=== PATIENT | female | born 1950 ===

== ENCOUNTER 2017-12-12 08:37 | Outpatient (CLI) | payer MEDICARE ==
[~2017-12-12] VITALS: Ht 154.9 cm; Wt 50.3 kg
== END 2017-12-12 10:37 | disposition home or self-care (01) ==
LOC: ECT 08:37
DX: F32.3 Major depressive disorder, single episode, severe with psychotic features (principal)

== ENCOUNTER 2017-12-13 09:06 | Outpatient (RCR) | payer MEDICARE ==
[~2017-12-13] VITALS: Ht 154.9 cm; Wt 50.6 kg
[2017-12-13] MEDS ORDERED: Succinylcholine 20mg/ml 10ml vial ONE ×2 (09:07)
[2017-12-13] MEDS ORDERED: Excedrin Migraine tab ONE (09:07)
[2017-12-13] MEDS ORDERED: Ketorolac 30mg Inj ONE (09:07)
[2017-12-13] MEDS ORDERED: NS 500ML ONE ×2 (09:07)
[2017-12-13] MEDS ORDERED: Methohexital Sodium Syr 100mg/10ml IVP ONE ×2 (09:07)
[2017-12-13 10:57] VITALS: BP 139/77
[2017-12-13] MEDS ORDERED: Sodium Chloride 500ML 500 ML IV ONE (11:07)
[2017-12-13 11:10] VITALS: BP 146/61
[2017-12-13 11:15] VITALS: BP 137/60
[2017-12-13 11:20] VITALS: BP 138/65
[2017-12-13 11:25] VITALS: BP 146/65
[2017-12-13 13:50] VITALS: BP 139/77
[2017-12-15] MEDS ORDERED: NS 500ML ONE (07:00)
[2017-12-15] MEDS ORDERED: Ketorolac 30mg Inj ONE (07:00)
[2017-12-15] MEDS ORDERED: Succinylcholine 20mg/ml 10ml vial ONE (07:00)
[2017-12-15] MEDS ORDERED: Methohexital Sodium Syr 100mg/10ml IVP ONE (07:00)
[2017-12-15] MEDS ORDERED: Excedrin Migraine tab ONE (07:00)
[2017-12-15 09:14] VITALS: BP 138/84
[2017-12-15] MEDS ORDERED: Excedrin Migraine tab ORAL PRN (09:26)
[2017-12-15] MEDS ORDERED: Sodium Chloride 500ML 500 ML IV ONE (09:26)
[2017-12-15 09:30] VITALS: BP 174/74
[2017-12-15 09:35] VITALS: BP 157/72
[2017-12-15 09:40] VITALS: BP 151/91
[2017-12-15 09:45] VITALS: BP 158/82
[2017-12-18] MEDS ORDERED: Methohexital Sodium Syr 100mg/10ml IVP ONE (08:00)
[2017-12-18] MEDS ORDERED: NS 500ML ONE (08:00)
[2017-12-18] MEDS ORDERED: Succinylcholine 20mg/ml 10ml vial ONE (08:00)
[2017-12-18] MEDS ORDERED: Excedrin Migraine tab ONE (08:00)
[2017-12-18] MEDS ORDERED: Ketorolac 30mg Inj ONE (08:00)
[2017-12-18 08:50] VITALS: BP 135/73
[2017-12-18] MEDS ORDERED: Sodium Chloride 500ML 500 ML IV ONE (09:05)
[2017-12-18] MEDS ORDERED: Excedrin Migraine tab ORAL PRN (09:05)
[2017-12-18 09:10] VITALS: BP 142/63
[2017-12-18 09:15] VITALS: BP 134/66
[2017-12-18 09:20] VITALS: BP 138/63
[2017-12-18 09:25] VITALS: BP 149/58
[2017-12-20] MEDS ORDERED: Succinylcholine 20mg/ml 10ml vial ONE (08:00)
[2017-12-20] MEDS ORDERED: Ketorolac 30mg Inj ONE (08:00)
[2017-12-20] MEDS ORDERED: NS 500ML ONE (08:00)
[2017-12-20] MEDS ORDERED: Methohexital Sodium Syr 100mg/10ml IVP ONE (08:00)
[2017-12-20] MEDS ORDERED: Excedrin Migraine tab ONE (08:00)
[2017-12-20 09:26] VITALS: BP 151/79
[2017-12-20] MEDS ORDERED: Excedrin Migraine tab ORAL PRN (09:49)
[2017-12-20] MEDS ORDERED: Sodium Chloride 500ML 500 ML IV ONE (09:49)
[2017-12-20 09:50] VITALS: BP 168/93
[2017-12-20 09:55] VITALS: BP 158/70
[2017-12-20 10:00] VITALS: BP 159/73
[2017-12-20 10:05] VITALS: BP 159/64
[2017-12-22] MEDS ORDERED: Ketorolac 60mg Inj IM ONE (09:00)
[2017-12-22] MEDS ORDERED: NS 500ML ONE (09:00)
[2017-12-22] MEDS ORDERED: Excedrin Migraine tab ONE (09:00)
[2017-12-22] MEDS ORDERED: Methohexital Sodium Syr 100mg/10ml IVP ONE (09:00)
[2017-12-22] MEDS ORDERED: Succinylcholine 20mg/ml 10ml vial ONE ×2 (09:00)
[2017-12-22 09:07] VITALS: BP 144/80
[2017-12-22] MEDS ORDERED: Sodium Chloride 500ML 500 ML IV ONE (09:21)
[2017-12-22] MEDS ORDERED: Excedrin Migraine tab ORAL PRN (09:21)
[2017-12-22 09:25] VITALS: BP 153/68
[2017-12-22 09:30] VITALS: BP 155/73
[2017-12-22 09:35] VITALS: BP 157/72
[2017-12-22 09:40] VITALS: BP 156/66
[2017-12-25 09:04] VITALS: BP 129/67
[2017-12-25] MEDS ORDERED: Sodium Chloride 500ML 500 ML IV ONE (09:14)
[2017-12-25] MEDS ORDERED: Excedrin Migraine tab ORAL PRN (09:14)
[2017-12-25 09:15] VITALS: BP 149/69
[2017-12-25 09:20] VITALS: BP 146/61
[2017-12-25 09:25] VITALS: BP 152/69
[2017-12-25 09:30] VITALS: BP 153/74
[2017-12-27] MEDS ORDERED: Excedrin Migraine tab ONE (07:00)
[2017-12-27] MEDS ORDERED: NS 500ML ONE (07:00)
[2017-12-27] MEDS ORDERED: Succinylcholine 20mg/ml 10ml vial ONE (07:00)
[2017-12-27] MEDS ORDERED: Ketorolac 30mg Inj ONE (07:00)
[2017-12-27] MEDS ORDERED: Methohexital Sodium Syr 100mg/10ml IVP ONE (07:00)
[2017-12-27 08:58] VITALS: BP 142/83
[2017-12-27] MEDS ORDERED: Excedrin Migraine tab ORAL PRN (09:08)
[2017-12-27] MEDS ORDERED: Sodium Chloride 500ML 500 ML IV ONE (09:08)
[2017-12-27 09:10] VITALS: BP 156/74
[2017-12-27 09:15] VITALS: BP 152/72
[2017-12-27 09:20] VITALS: BP 148/71
[2017-12-27 09:25] VITALS: BP 145/67
[2017-12-29] MEDS ORDERED: Ketorolac 30mg Inj ONE (07:00)
[2017-12-29] MEDS ORDERED: Succinylcholine 20mg/ml 10ml vial ONE (07:00)
[2017-12-29] MEDS ORDERED: Excedrin Migraine tab ONE (07:00)
[2017-12-29] MEDS ORDERED: NS 500ML ONE (07:00)
[2017-12-29] MEDS ORDERED: Methohexital Sodium Syr 100mg/10ml IVP ONE (07:00)
[2017-12-29 08:45] VITALS: BP 143/83
[2017-12-29 09:00] VITALS: BP 161/85
[2017-12-29] MEDS ORDERED: Excedrin Migraine tab ORAL PRN (09:00)
[2017-12-29] MEDS ORDERED: Sodium Chloride 500ML 500 ML IV ONE (09:00)
[2017-12-29 09:05] VITALS: BP 147/78
[2017-12-29 09:10] VITALS: BP 142/78
[2017-12-29 09:15] VITALS: BP 148/75
[2018-01-05] MEDS ORDERED: NS 500ML ONE (06:00)
[2018-01-05] MEDS ORDERED: Ketorolac 60mg Inj IM ONE (06:00)
[2018-01-05] MEDS ORDERED: Succinylcholine 20mg/ml 10ml vial ONE (06:00)
[2018-01-05] MEDS ORDERED: Excedrin Migraine tab ONE (06:00)
[2018-01-05 08:13] VITALS: BP 140/78
[2018-01-05] MEDS ORDERED: Sodium Chloride 500ML 500 ML IV ONE (08:28)
[2018-01-05] MEDS ORDERED: Excedrin Migraine tab ORAL PRN (08:28)
[2018-01-05 08:30] VITALS: BP 161/84
[2018-01-05 08:35] VITALS: BP 152/86
[2018-01-05 08:40] VITALS: BP 154/78
[2018-01-05 08:45] VITALS: BP 159/82
== END 2018-01-07 | disposition home or self-care (01) ==
LOC: ECT 09:06
DX: F32.3 Major depressive disorder, single episode, severe with psychotic features (principal)
CPT/HCPCS: 90870; J0330; J1885; J7040

== ENCOUNTER 2018-01-17 06:07 | Outpatient (RCR) | payer MEDICARE ==
[~2018-01-17] VITALS: Ht 30.5 cm; Wt 0.5 kg
[2018-01-17] MEDS ORDERED: NS 500ML ONE (06:08)
[2018-01-17] MEDS ORDERED: Methohexital Sodium Syr 100mg/10ml IVP ONE (06:08)
[2018-01-17] MEDS ORDERED: Ketorolac 30mg Inj ONE (06:08)
[2018-01-17] MEDS ORDERED: Succinylcholine 20mg/ml 10ml vial ONE (06:08)
[2018-01-17] MEDS ORDERED: Excedrin Migraine tab ONE (06:08)
[2018-01-17 09:48] VITALS: BP 133/78
[2018-01-17] MEDS ORDERED: Sodium Chloride 500ML 500 ML IV ONE (10:02)
[2018-01-17] MEDS ORDERED: Excedrin Migraine tab ORAL PRN (10:02)
[2018-01-17 10:05] VITALS: BP 134/59
[2018-01-17 10:10] VITALS: BP 130/53
[2018-01-17 10:15] VITALS: BP 142/65
[2018-02-07 08:46] VITALS: BP 135/74
[2018-02-07] MEDS ORDERED: Atropine Sulfate 0.4mg/ml inj IVP PRN (08:58)
[2018-02-07] MEDS ORDERED: Sodium Chloride 500ML 500 ML IV ONE (08:58)
[2018-02-07] MEDS ORDERED: Excedrin Migraine tab ORAL PRN (08:58)
[2018-02-07 09:00] VITALS: BP 163/53
[2018-02-07 09:05] VITALS: BP 154/79
[2018-02-07 09:10] VITALS: BP 153/80
[2018-02-07 09:15] VITALS: BP 155/57
[2018-02-07] MEDS ORDERED: Methohexital Sodium Syr 100mg/10ml IVP ONE (13:06)
[2018-02-07] MEDS ORDERED: NS 500ML ONE (13:06)
[2018-02-07] MEDS ORDERED: Succinylcholine 20mg/ml 10ml vial ONE (13:06)
[2018-02-07] MEDS ORDERED: Excedrin Migraine tab ONE (13:06)
[2018-02-07] MEDS ORDERED: Ketorolac 30mg Inj ONE (13:06)
== END 2018-02-07 | disposition home or self-care (01) ==
LOC: ECT 06:07
DX: F32.3 Major depressive disorder, single episode, severe with psychotic features (principal)
CPT/HCPCS: 90870; J0330; J1885; J7040

== ENCOUNTER 2018-03-07 04:39 | Outpatient (RCR) | payer MEDICARE ==
[~2018-03-07] VITALS: Ht 154.9 cm; Wt 50.3 kg
[2018-03-07] MEDS ORDERED: Ketorolac 30mg Inj ONE (04:40)
[2018-03-07] MEDS ORDERED: Methohexital Sodium Syr 100mg/10ml IVP ONE (04:40)
[2018-03-07] MEDS ORDERED: Succinylcholine 20mg/ml 10ml vial ONE (04:40)
[2018-03-07] MEDS ORDERED: NS 500ML ONE (04:40)
[2018-03-07] MEDS ORDERED: Excedrin Migraine tab ONE (04:40)
[2018-03-07 08:42] VITALS: BP 112/70
[2018-03-07] MEDS ORDERED: Excedrin Migraine tab ORAL PRN (08:55)
[2018-03-07] MEDS ORDERED: Sodium Chloride 500ML 500 ML IV ONE (08:55)
[2018-03-07 09:00] VITALS: BP 150/70
[2018-03-07 09:05] VITALS: BP 138/62
[2018-03-07 09:10] VITALS: BP 139/68
[2018-03-07 09:15] VITALS: BP 136/48
== END 2018-03-09 | disposition home or self-care (01) ==
LOC: ECT 04:39
DX: F32.3 Major depressive disorder, single episode, severe with psychotic features (principal)
CPT/HCPCS: 90870; J0330; J1885; J7040

== ENCOUNTER 2018-04-04 05:51 | Outpatient (RCR) | payer MEDICARE ==
[~2018-04-04] VITALS: Ht 30.5 cm; Wt 0.5 kg
[2018-04-04 08:08] VITALS: BP 116/67
[2018-04-04] MEDS ORDERED: Excedrin Migraine tab ORAL PRN (08:23)
[2018-04-04] MEDS ORDERED: Sodium Chloride 500ML 500 ML IV ONE (08:23)
[2018-04-04 08:25] VITALS: BP 143/73
[2018-04-04 08:30] VITALS: BP 149/78
[2018-04-04 08:35] VITALS: BP 138/77
[2018-04-04 08:40] VITALS: BP 146/65
== END 2018-04-09 | disposition home or self-care (01) ==
LOC: ECT 05:51
DX: F32.3 Major depressive disorder, single episode, severe with psychotic features (principal); E78.5 Hyperlipidemia, unspecified; E03.9 Hypothyroidism, unspecified; E11.9 Type 2 diabetes mellitus without complications; F41.9 Anxiety disorder, unspecified; H40.9 Unspecified glaucoma
CPT/HCPCS: 90870

== ENCOUNTER 2018-05-02 07:37 | Outpatient (RCR) | payer MEDICARE ==
[~2018-05-02] VITALS: Ht 30.5 cm; Wt 0.5 kg
[2018-05-02] MEDS ORDERED: Ketorolac 30mg Inj ONE (07:38)
[2018-05-02] MEDS ORDERED: NS 500ML ONE (07:38)
[2018-05-02] MEDS ORDERED: Succinylcholine 20mg/ml 10ml vial ONE (07:38)
[2018-05-02] MEDS ORDERED: Methohexital Sodium Syr 100mg/10ml IVP ONE (07:38)
[2018-05-02] MEDS ORDERED: Excedrin Migraine tab ONE (07:38)
[2018-05-02] MEDS ORDERED: Excedrin Migraine tab ORAL PRN ×3 (08:31→08:51)
[2018-05-02 08:37] VITALS: BP 125/69
[2018-05-02 08:55] VITALS: BP 149/70
[2018-05-02 09:00] VITALS: BP 139/72
[2018-05-02 09:05] VITALS: BP 140/60
[2018-05-02 09:10] VITALS: BP 150/62
== END 2018-05-10 | disposition home or self-care (01) ==
LOC: ECT 07:37
DX: F32.3 Major depressive disorder, single episode, severe with psychotic features (principal); E03.9 Hypothyroidism, unspecified; E78.5 Hyperlipidemia, unspecified; E11.9 Type 2 diabetes mellitus without complications; M81.0 Age-related osteoporosis without current pathological fracture
CPT/HCPCS: 90870; J0330; J1885; J7040

== ENCOUNTER 2018-05-30 04:40 | Outpatient (RCR) | payer MEDICARE ==
[~2018-05-30] VITALS: Ht 30.5 cm; Wt 0.5 kg
[2018-05-30] MEDS ORDERED: Succinylcholine 20mg/ml 10ml vial ONE (04:41)
[2018-05-30] MEDS ORDERED: Excedrin Migraine tab ONE (04:41)
[2018-05-30] MEDS ORDERED: Ketorolac 30mg Inj ONE (04:41)
[2018-05-30] MEDS ORDERED: NS 500ML ONE (04:41)
[2018-05-30] MEDS ORDERED: Methohexital Sodium Syr 100mg/10ml IVP ONE (04:41)
[2018-05-30 08:09] VITALS: BP 145/73
[2018-05-30] MEDS ORDERED: Excedrin Migraine tab ORAL PRN (08:22)
[2018-05-30 08:25] VITALS: BP 156/80
[2018-05-30 08:30] VITALS: BP 169/82
[2018-05-30 08:35] VITALS: BP 146/92
[2018-05-30 08:40] VITALS: BP 146/70
== END 2018-06-07 | disposition home or self-care (01) ==
LOC: ECT 04:40
DX: F32.3 Major depressive disorder, single episode, severe with psychotic features (principal)
CPT/HCPCS: 90870; J0330; J1885; J7040

== ENCOUNTER 2018-06-27 05:55 | Outpatient (RCR) | payer MEDICARE ==
[~2018-06-27] VITALS: Ht 30.5 cm; Wt 0.5 kg
[2018-06-27] MEDS ORDERED: NS 500ML ONE (05:56)
[2018-06-27] MEDS ORDERED: Excedrin Migraine tab ONE (05:56)
[2018-06-27] MEDS ORDERED: Methohexital Sodium Syr 100mg/10ml IVP ONE (05:56)
[2018-06-27] MEDS ORDERED: Ketorolac 30mg Inj ONE (05:56)
[2018-06-27] MEDS ORDERED: Succinylcholine 20mg/ml 10ml vial ONE (05:56)
[2018-06-27 09:22] VITALS: BP 128/69
[2018-06-27] MEDS ORDERED: Excedrin Migraine tab ORAL PRN (09:33)
[2018-06-27 09:35] VITALS: BP 132/96
[2018-06-27 09:40] VITALS: BP 153/82
[2018-06-27 09:45] VITALS: BP 146/73
[2018-06-27 09:50] VITALS: BP 142/69
== END 2018-07-08 | disposition home or self-care (01) ==
LOC: ECT 05:55
DX: F32.3 Major depressive disorder, single episode, severe with psychotic features (principal)
CPT/HCPCS: 90870; J0330; J1885; J7040

== ENCOUNTER 2018-07-23 10:36 | Outpatient (RCR) | payer MEDICARE ==
[~2018-07-23] VITALS: Ht 154.9 cm; Wt 50.3 kg
[2018-07-23 08:57] VITALS: BP 130/74
[2018-07-23 09:15] VITALS: BP 148/79
[2018-07-23 09:20] VITALS: BP 153/73
[2018-07-23 09:25] VITALS: BP 161/71
[2018-07-23 09:30] VITALS: BP 151/87
[~2018-07-23 10:36] MED LIST: Excedrin Migraine tab ORAL PRN
[2018-07-23] MEDS ORDERED: Ketorolac 30mg Inj ONE (10:37)
[2018-07-23] MEDS ORDERED: NS 500ML ONE (10:37)
[2018-07-23] MEDS ORDERED: Succinylcholine 20mg/ml 10ml vial ONE (10:37)
[2018-07-23] MEDS ORDERED: Methohexital Sodium Syr 100mg/10ml IVP ONE (10:37)
[2018-07-23] MEDS ORDERED: Excedrin Migraine tab ONE (10:37)
== END 2018-08-07 | disposition home or self-care (01) ==
LOC: ECT 10:36
DX: F32.3 Major depressive disorder, single episode, severe with psychotic features (principal)
CPT/HCPCS: 90870; J0330; J1885; J7040